=== PATIENT | male | born 1980 | race Caucasian/White ===

== ENCOUNTER 2023-04-08 13:22 | Emergency (ER) | payer MEDICAID ==
[~2023-04-08] VITALS: Ht 167.6 cm; Wt 84.1 kg
[2023-04-08 13:41] VITALS: BP 148/93; PULSE 103; RESP 18; TEMP 98.3; O2SAT 99
== END 2023-04-08 14:28 | disposition home or self-care (01) ==
LOC: ER 13:22
DX: F19.10 Other psychoactive substance abuse, uncomplicated (principal); Z02.89 Encounter for other administrative examinations; F12.90 Cannabis use, unspecified, uncomplicated; F15.90 Other stimulant use, unspecified, uncomplicated; F17.200 Nicotine dependence, unspecified, uncomplicated; Z72.89 Other problems related to lifestyle; Z59.00 Homelessness unspecified
CPT/HCPCS: 99281